=== PATIENT | male | born 1995 | race African-American/Black ===

== ENCOUNTER 2016-10-27 16:22 | Emergency (ER) | payer SELFPAY ==
--- NOTE | ~2016-10-27 | ER ---
PATIENT'S NAME: JUAN DORADO [facility] AGE: 21 Y [address] ROOM: [place] [address] LOCATION: ED ADMIT DATE: 10/27/2016 ER/Outpatient Report DISCHARGE DATE: 10/27/2016 FAMILY PHYSICIAN: PHYSICIAN, NO ATTENDING PHYSICIAN: Kenji Nguyen Time of Patient Arrival: 1622 hours. Time of Patient Evaluation: 1635 hours. CHIEF COMPLAINT: Diarrhea, vomiting. HISTORY OF PRESENT ILLNESS: This is a 21-year-old male, who presents to the ER. He states he had some diarrhea yesterday as well as three emesis yesterday. He states that he has had an improvement in his diarrhea today. He states that he has had some loose stools, but they are not as watery as they were the day before. He has not been running any fevers. He has had no chills. He states that he felt a little bit nauseated this morning, but he smoked some marijuana and that improved his symptoms. He states the only reason why he is here is to get a work note, so he can go back to work. ALLERGIES: NO KNOWN ALLERGIES. MEDICATIONS: None. PAST MEDICAL HISTORY: Negative. PAST SURGICAL HISTORY: None. SOCIAL HISTORY: He was smoking a 4th pack of cigarettes a day, but he stopped 2 weeks ago. He does drink alcohol socially and he smokes marijuana. REVIEW OF SYSTEMS: A 10-point review of systems was completed and was negative with the exception of those discussed in the HPI. PHYSICAL EXAMINATION: VITAL SIGNS: Weight 59 kg taken, blood pressure is 136/87, pulse 78, respirations 18, temperature 98.0 degrees tympanically, and saturations 98% on PATIENT'S NAME: JUAN DORADO [facility] AGE: 21 Y [address] ROOM: [place], [place] [address] LOCATION: [facility] ADMIT DATE: 10/27/2016 ER/Outpatient Report DISCHARGE DATE: 10/27/2016 FAMILY PHYSICIAN: PHYSICIAN, NO ATTENDING PHYSICIAN: Kenji Nguyen room air. Yamil Coma Score is 15. GENERAL: Alert, calm, well-developed 21-year-old, in no acute distress. HEENT: Head; normocephalic. LUNGS: Clear to auscultation bilaterally. No wheezes or crackles. Normal respiratory effort. HEART: Regular rate and rhythm. No lifts, thrills, or murmurs. EXTREMITIES: No clubbing, cyanosis, or edema. Has full range of motion of all limbs. LABORATORY DATA AND IMAGING STUDIES: Labs and X-rays: None were done. IMPRESSION: Gastroenteritis yesterday, improved today. ASSESSMENT AND PLAN: I did provide him with a note that he may return back to work. He needs to continue to monitor his symptoms. Push fluids. He may use Imodium if needed, and the patient understands and agrees with care. RAFAELA CURIEL PA-C FOR MD ANTOINETTE KERN/jean /[id number] d: 10/27/162245 t: 10/30/162242, OUTPATIENT REPORT
== END 2016-10-27 16:50 | disposition disaster alternative care site (69) ==
LOC: GMED 16:22
DX: K52.9 Noninfective gastroenteritis and colitis, unspecified (principal); F17.210 Nicotine dependence, cigarettes, uncomplicated